=== PATIENT | male | born 1995 | race Caucasian/White ===

== ENCOUNTER 2020-04-30 13:08 | Emergency (ER) | payer SELFPAY ==
[2020-04-30 13:20] VITALS: RESP 15; BMI 33.0
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
[2020-04-30 13:36] VITALS: BP 120/69; PULSE 112; RESP 14; O2SAT 96
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
[2020-04-30] MEDS: acetaminophen 500 mg Tablet 1000 MG PO (14:28)
[2020-04-30] MEDS: ondansetron 4 MG Tablet PO (14:28)
== END 2020-04-30 16:02 | disposition home or self-care (01) ==
PROVIDERS: Emergency Provider Physician Assistant; PCP Nurse Practitioner
DX: S06.0X0A Concussion without loss of consciousness, initial encounter (principal); Y04.2XXA Assault by strike against or bumped into by another person, initial encounter
CPT/HCPCS: 12345; 70450; 70486; 99281; 99283; Q0162